=== PATIENT | female | born 1985 | race Caucasian/White ===

== ENCOUNTER → 2016-09-07 | Outpatient (CLI) | payer OTHER ==
[~2016-09-07] MED LIST: DCS100C PO; ESCI5TAB; IBP800T PO; OXYC1TAB12 PO; PREN1TAB19 PO; SERT25TA PO; [UNRECOGNIZED DRUG - OTHER]
[2016-09-07 08:00] LABS: BASOPHILS % (AUTO) 0 % (0-10); EOSINOPHILS # (AUTO) 0.1 10^3/uL (0.0-0.3); EOSINOPHILS % (AUTO) 1 % (0-10); LYMPHOCYTES # (AUTO) 3.8 X 10^3 (1.0-4.0); LYMPHOCYTES % (AUTO) 28 % (12-44); MEAN CORPUSCULAR HEMOGLOBIN 31 PG (25-34); MEAN CORPUSCULAR HGB CONC 34 G/DL (32-36); MEAN CORPUSCULAR VOLUME 91 FL (80-99); MEAN PLATELET VOLUME 9.6 FL (7.4-10.4); MONOCYTES # (AUTO) 0.6 X 10^3 (0.0-1.0); MONOCYTES % (AUTO) 4 % (0-12); NEUTROPHILS % (AUTO) 67 % (42-75); PLATELET COUNT 405 10^3/uL (130-400); RED BLOOD COUNT 4.18 10^6/uL (4.35-5.85); RED CELL DISTRIBUTION WIDTH 12.2 % (10.0-14.5); WHITE BLOOD COUNT 13.5 10^3/uL (4.3-11.0)
[2016-09-07 08:19] LABS: ALANINE AMINOTRANSFERASE 13 U/L (0-55); ALBUMIN 3.7 GM/DL (3.2-4.5); ANION GAP 8 MMOL/L (5-14); ASPARTATE AMINO TRANSFERASE 10 U/L (5-34); BILIRUBIN,TOTAL 0.2 MG/DL (0.1-1.0); BLOOD UREA NITROGEN 13 MG/DL (7-18); BUN/CREATININE RATIO 17; CALCIUM 8.7 MG/DL (8.5-10.1); CARBON DIOXIDE 22 MMOL/L (21-32); CHLORIDE 108 MMOL/L (98-107); CHOLESTEROL 154 MG/DL (< 200); CREATININE SERUM 0.76 MG/DL (0.60-1.30); DIRECT LDL 84 MG/DL (1-129); GFR ESTIMATED > 60; GLUCOSE 88 MG/DL (70-105); POTASSIUM 4.2 MMOL/L (3.6-5.0); SODIUM 138 MMOL/L (135-145); TOTAL PROTEIN 6.7 GM/DL (6.4-8.2); TRIGLYCERIDES 92 MG/DL (<150); VLDL CHOLESTEROL 18 MG/DL (5-40); hs C REACTIVE PROTEIN 2.69 MG/DL (0.00-0.50)
[2016-09-07 08:26] LABS: BAND NEUTROPHILS 1 %; BASOPHILS % (MANUAL) 1 %; EOSINOPHILS % (MANUAL) 2 %; LYMPHOCYTES % (MANUAL) 33 %; NEUTROPHILS % (MANUAL) 61 %
[2016-09-07 08:29] LABS: ERYTHROCYTE SEDIMENTATION RATE 17 MM/HR (0-20)
[2016-09-07 08:41] LABS: THYROID STIMULATING HORMONE 1.38 UIU/ML (0.35-4.94)
== END ==
LOC: LAB 07:41
PROVIDERS: ATTEND Nurse Practitioner Family
DX: R76.8 Other specified abnormal immunological findings in serum (principal); M13.0 Polyarthritis, unspecified; R42 Dizziness and giddiness; F41.1 Generalized anxiety disorder; R00.0 Tachycardia, unspecified
CPT/HCPCS: 36415; 80053; 80061; 84439; 84443; 85007; 85027; 85652; 86038; 86141

== ENCOUNTER 2016-09-19 10:59 | Outpatient (RCR) | payer OTHER | END 2016-11-26 | disposition home or self-care (01) | LOC: CARD 10:59 | PROVIDERS: ATTEND Family Medicine | DX: R00.0 Tachycardia, unspecified (principal) | CPT/HCPCS: 93225; 93226 ==

== ENCOUNTER → 2016-10-07 | Outpatient (CLI) | payer OTHER ==
[2016-10-07 14:10] LABS: BASOPHILS % (AUTO) 0 % (0-10); EOSINOPHILS # (AUTO) 0.1 10^3/uL (0.0-0.3); EOSINOPHILS % (AUTO) 1 % (0-10); LYMPHOCYTES # (AUTO) 1.5 X 10^3 (1.0-4.0); LYMPHOCYTES % (AUTO) 17 % (12-44); MEAN CORPUSCULAR HEMOGLOBIN 31 PG (25-34); MEAN CORPUSCULAR HGB CONC 34 G/DL (32-36); MEAN CORPUSCULAR VOLUME 91 FL (80-99); MEAN PLATELET VOLUME 9.5 FL (7.4-10.4); MONOCYTES # (AUTO) 0.5 X 10^3 (0.0-1.0); MONOCYTES % (AUTO) 5 % (0-12); NEUTROPHILS # (AUTO) 6.8 X 10^3 (1.8-7.8); NEUTROPHILS % (AUTO) 77 % (42-75); PLATELET COUNT 333 10^3/uL (130-400); RED BLOOD COUNT 4.29 10^6/uL (4.35-5.85); RED CELL DISTRIBUTION WIDTH 12.2 % (10.0-14.5); WHITE BLOOD COUNT 8.8 10^3/uL (4.3-11.0)
[2016-10-07 14:43] LABS: EOSINOPHILS % (MANUAL) 1 %; LYMPHOCYTES % (MANUAL) 18 %; NEUTROPHILS % (MANUAL) 78 %
--- NOTE | 2016-10-07 15:51 | Diagnostic Imaging Report ---
CLINICAL INDICATION: Patient is seeing spots, flashes of light, headache everyday, tachycardia. Patient has headaches on top of head. EXAM: Axial CT scan of the brain performed without IV contrast. COMPARISON: None. FINDINGS: There is no evidence of acute cerebral infarct, intracranial hemorrhage, or gross mass effect. There is normal sanchez-white matter distinction. The brain parenchymal volume appears appropriate for patient's age. There is no significant midline shift or herniation. There is no evidence of hydrocephalus. The basal cisterns are unremarkable. The skull, extracranial soft tissue, and orbits are unremarkable. The paranasal sinuses are unremarkable. IMPRESSION: Unremarkable CT scan of the brain. Dictated by: Dictated on workstation # [id number]
== END ==
LOC: RAD 13:27
PROVIDERS: ATTEND Nurse Practitioner Family
DX: R42 Dizziness and giddiness (principal); H53.8 Other visual disturbances; R51 Headache
CPT/HCPCS: 36415; 70450; 85007; 85027; 86141

== ENCOUNTER → 2016-10-26 | Outpatient (CLI) | payer OTHER ==
[~2016-10-26] MED LIST changes: +AZIT250T12; +BENZ200C51 PO; +ESCI10TA PO; +ETHY1TAB3 PO; +OXYC-202 PO; +OXYC-465; +PRD20T
== END ==
LOC: CARD 11:37
PROVIDERS: ATTEND Nurse Practitioner Family
DX: R07.9 Chest pain, unspecified (principal)
CPT/HCPCS: 93306

== ENCOUNTER 2016-12-20 05:34 | Outpatient (CLI) | payer OTHER ==
[~2016-12-20] VITALS: Ht 160 cm; Wt 77.1 kg
[~2016-12-20 05:34] MED LIST changes: -AZIT250T12; -BENZ200C51 PO; -ESCI10TA PO; -ETHY1TAB3 PO; -OXYC-202 PO; -OXYC-465; -PRD20T
[2016-12-20] MEDS ORDERED: ETHY1TAB3 PO (10:18)
[2016-12-20] MEDS ORDERED: ESCI10TA PO (10:18)
== END 2016-12-20 10:20 ==
LOC: PREOP 05:34
PROVIDERS: ATTEND Obstetrics & Gynecology
DX: Z01.818 Encounter for other preprocedural examination (principal); N93.8 Other specified abnormal uterine and vaginal bleeding; N92.0 Excessive and frequent menstruation with regular cycle

== ENCOUNTER 2016-12-23 06:08 | Day surgery (SDC) | payer OTHER ==
[~2016-12-23] VITALS: Ht 160 cm; Wt 77.1 kg
[~2016-12-23 06:08] MED LIST changes: +ESCI10TA PO; +ETHY1TAB3 PO
[2016-12-23] MEDS ORDERED: SEVOFLURANE (ULTANE) 15 ML INHAL SOLN ONE ×3 (06:38→07:31)
[2016-12-23] MEDS ORDERED: proPOfol 200 MG/20 ML (DIPRIVAN) VIAL IV ONE (06:38)
[2016-12-23] MEDS ORDERED: LIDOCAINE PF 2% 5 ML (XYLOCAINE) VIAL ONE (06:38)
[2016-12-23] MEDS ORDERED: MIDAZOLAM 2 MG/2 ML (VERSED) VIAL ONE (06:39)
[2016-12-23] MEDS ORDERED: fentaNYL INJECTION 100 MCG/2 ML AMP ONE (06:39)
[2016-12-23 06:41] LABS: MEAN PLATELET VOLUME 9.5 FL (7.4-10.4); RED BLOOD COUNT 3.75 10^6/uL (4.35-5.85); WHITE BLOOD COUNT 13.4 10^3/uL (4.3-11.0)
[2016-12-23] MEDS ORDERED: LACTATED RINGERS 1,000 ML IV PRN (06:41)
[2016-12-23] MEDS ORDERED: DEXAMETHASONE 10 MG/ML (DECADRON) 1 ML VIAL ONE (06:42)
[2016-12-23] MEDS ORDERED: ONDANSETRON 4 MG/2 ML (SDV) Z0FRAN ONE (06:42)
[2016-12-23] MEDS ORDERED: NS (IVPB) 50 ML ONE (06:53)
[2016-12-23] MEDS ORDERED: ceFAZolin 1,000 MG (ANCEF) VIAL ONE (06:53)
[2016-12-23] MEDS ORDERED: D5 LR IV SOLUTION 1,000 ML IV SCH (06:58)
[2016-12-23] MEDS ORDERED: OXYC-202 PO (06:59)
[2016-12-23] MEDS ORDERED: ONDANSETRON 4 MG/2 ML (SDV) Z0FRAN IVP PRN ×2 (07:00→08:30)
[2016-12-23] MEDS ORDERED: MEPERIDINE (DEMEROL) INJ 100 MG/ML IM ONE (07:00)
[2016-12-23] MEDS ORDERED: oxyCODONE/APAP 10/325MG (PERCOCET 10) TABLET PO PRN (07:00)
[2016-12-23] MEDS ORDERED: PROMETHAZINE INJ 25 MG/ML (PHENERGAN) AMP IM ONE (07:00)
[2016-12-23] MEDS ORDERED: KETOROLAC 30 MG/ML VIAL IVP ONE ×2 (07:00→08:30)
[2016-12-23] MEDS ORDERED: ESTROGENS CONJ IV 25 MG/5 ML (PREMARIN) VIAL IVP ONE (07:00)
--- NOTE | 2016-12-23 07:01 | Discharge Instructions ---
Discharge Instructions Discharge Medications New, Converted or Re-Newed RX: RX on Chart Patient Instructions Patient Instructions: as directed Return to The Hospital For: as directed Activity & Diet Discharge Diet: No Restrictions Activity as Tolerated: No Orders-Post D/C & Referrals Follow Up Appt: Call to make follow up appt. for patient in 2 weeks. Activity: Rest for 24 hours, than as tolerated. Diet: As tolerated-Clear Liquids only if nauseated. May shower or tub bathe as desired. No driving for 24 hours, no alcoholic beverages for 24 hours, and nothing per vagina (no tampons, douching, or intercourse) for 2 weeks. Patient to return to the clinic as soon as possible for: Temperature greater than 101F, Severe Pain, Foul discharge from incision or vagina, Excessive Bleeding (more than a period). ANGELI HUFF MD Dec 23, 2016 7:01 am
--- NOTE | 2016-12-23 07:02 | Progress Note-Pre Operative ---
Pre-Operative Progress Note H&P Reviewed The H&P was reviewed, patient examined and no changes noted. Date Seen by Provider: Dec 23, 2016 Time Seen by Provider: 07:15 Date H&P Reviewed: Dec 23, 2016 Time H&P Reviewed: 07:15 Pre-Operative Diagnosis: discharge uterine bleeding/menorrhagia/endometrial polyp ANGELI HUFF MD Dec 23, 2016 7:02 am
--- NOTE | 2016-12-23 07:03 | Progress Note-Post Operative ---
Post-Operative Progess Note Surgeon (s)/Hvac Refrigeration Technician (s) Surgeon ANGELI HUFF MD Hvac Refrigeration Technician: none Pre-Operative Diagnosis discharge uterine bleeding/menorrhagia/endometrial polyp Post-Operative Diagnosis same with pathology pending Procedure & Operative Findings Date of Procedure 12/23/16 Procedure Performed/Findings hysteroscopy with directed biopsy and D&C Anesthesia Type GETA Estimated Blood Loss Estimated blood loss (mL): minimal Specimens/Packing Specimens Removed directed endometrial mass biopsy, endometrial curettings Packing: none required ANGELI HUFF MD Dec 23, 2016 07:03
[2016-12-23] MEDS ORDERED: ceFAZolin 1 GM/NS 50 ML IVPB IV ONE ×2 (07:30)
[2016-12-23 07:44] VITALS: BP 120/75
[2016-12-23] MEDS ORDERED: WATER (STERILE) FOR INJECTION 10 ML ONE (08:04)
[2016-12-23] MEDS ORDERED: morphine INJ 10 MG/ML 1ML (SYR OR VIAL) ONE (08:10)
[2016-12-23] MEDS ORDERED: morphine INJ 10 MG/ML 1ML (SYR OR VIAL) IVP PRN (08:30)
[2016-12-23 09:00] VITALS: BP 122/87
--- OUTSIDE RECORDS SUMMARY | 2016-12-23 09:10 | XMS REPORT | Clinical Summary ---
Author Author [facility] Organization [facility] Address Unknown Phone Unavailable Care Team Providers Care Resident Care Associate Name Role Phone PCP Unavailable Source Comments Some departments are not documenting in the electronic medical record. If you do not see the information that you expected, contact Release of Information in the Health Information Management department at [phone] for further assistance in locating additional records.[facility] Allergies Active Allergy Reactions Severity Noted Date Comments Fluticasone SWOLLEN TONGUE, ITCHING, High 03/04/2011 Throat Swelling SEE COMMENTS Ciprofloxacin HIVES, RASH 03/04/2011 Sulfa (Sulfonamide HIVES, RASH 03/04/2011 Antibiotics) Current Medications Prescription Sig. Disp. Refills Start End Date Status Date acetaminophen (TYLENOL) Take 500 mg by mouth Active 500 mg tablet every 6 hours as needed. sertraline (ZOLOFT) 100 Take 1.5 Tabs by mouth 135 Tab 3 11/07/19 Active mg tablet daily. [address](+) Take 1 Cap by mouth twice 180 Cap 3 11/07/19 Active (PREVACID) 30 mg capsule daily. 14 ALPRAZolam (XANAX) 0.25 Take 1 Tab by mouth daily 15 Tab 1 11/07/19 Active mg tablet as needed. [address](+) TAKE ONE CAPSULE BY MOUTH 180 Cap 1 01/15/20 Active (PRILOSEC) 20 mg capsule TWICE DAILY 14 VIT Take by mouth daily. Active W-CA,FE,FA(<1 MG) ( VITAMIN PO) Active Problems Problem Noted Date First 02/05/2014 Overview: Formatting of this note may be different from the original. 28 y.o. with BANDAR 10/03/14 by 6 week sono Patient's last menstrual period was 12/02/2013. labs rh positive, antibody negative, RI, RPR NR, HIV neg, Hep B neg, CBC wnl, frank/chl neg Pap smear Negative 2012 NT sono AFP/QS Anatomy sono 28wk labs GTT GBS Flu vaccine Tdap vaccine Rhogam vaccine indicated MMR vaccine indicated Well woman exam 11/12/2012 Overview: Formatting of this note may be different from the original. Health Maintenance Topic Date Due Influenza Vaccine 10/28/2012 Physical (Comprehensive) Exam 11/12/2013 Cervical Cancer Screening 05/09/2014 Tetanus Vaccine 08/27/2022 Pertussis Vaccine Completed Dexa: DUE at age 65 Mammogram: DUE at age 40 every 2 years, then annually at age 50. Last Annual eye exam: PRN PAP: last PAP 04/2012 Lack of transformation zone; sees [facility] Colonoscopy/ annual FOBT: ordered ;prior Colonoscopy, unknown results; due at age 49 Hearing difficulty?: no Immunization History Administered Date(s) Administered FLU VACCINE >3YO 11/22/2010 Tdap Vaccine 09/11/2012 Tetanus Vaccine 03/24/2007 TDAP: Done:08/2012 Tetanus: [id number]; Done:08/2012 ; due 08/2022 Varicella: 2 doses if not immune or no prior infection Zoster 1 dose after age 60 y. due: age 60 MMR: 1-2 doses prior to age 50 y. Normal Childhood vaccine series FLU/ H1N1: Annually: done ; due: 2012, she will do at hospital Pneumococcal: 1 dose after 65y. Due: age 64 aspirin for women age 55 to 79 years: DUE at age 55 >20 y. Lipid panel if increased risk of CHD: no increased CHD risk No results found for this basename: chol, trig, hdl, ldl, vldl, nonhdlchol, cholhdlc HIV screen if at risk: Address at next visit If HTN, screen for DM: No HTN If HLD, refer to nutrition for low cholesterol diet: no HLD Screen for obesity: Body mass index is 26.71 kg/(m^2). Overweight (BMI ?25 Discussed patient's BMI with her. The BMI is above average; counseled regarding weight loss. IBS (irritable bowel syndrome) 11/12/2012 Overview: Nausea and RUQ/ LUQ abd pain, improved w/ PPI Diarrhea w/ meals alternating w/ constipation Increase fiber in her diet - tried- but during a period of diarrhea, consider miralax Handouts provided Food elimination trials: Has tried briefly eliminating coffee- warm fluids for breakfast. Gluten free when she is able to do. GERD (gastroesophageal reflux disease) 05/28/2012 Overview: uncontroled on omeprazole 20mg bid. Refer for EGD Change to prevacid 30mg bid Add pepcid 20mg prn Hx of ulcers and h.pylori NINO positive 05/28/2012 Connective tissue disease, undifferentiated (HCC) 05/28/2012 Anxiety 02/28/2012 Overview: Increased anxiety; father has CA and and she is getting . Denies SI/ HI. sertraline increase to 150mg daily Psychology - she is attending counseling Xanax .25mg prn Encouraged exercise. Hematuria 02/07/2012 Overview: [facility]; Renal: Dr. Anguiano Interstitial cystitis 07/28/2011 Overview: [facility]. Chronic sinusitis 03/31/2011 Overview: CT head from 03/16/11: near opacification of the bilateral maxillary sinuses and left sphenoid sinus with air fluid level, and mucosal thickening within a majority of the ethmoid air cells. Given augmentin and flonase by ENT in 02/[address] max/fac ordered. L ast Assessment & Plan: Likely causing VELASCO in this patient. Await response to meds and possible intervention with ENT. Allergic rhinitis 03/11/2011 PUD (peptic ulcer disease) Overview: Diagnosed in 2003 with EGD and colonoscopy. No meds needed for intermittent symptoms. H pylori positive at the time. 10/2013 EGD: Summary: Normal esophagus. Normal stomach. Biopsies were taken for h.pylori. Normal duodenum. Biopsies were taken for celiac disease. Recommendations: Raise the head of the bed 4 to 6 inches. Avoid smoking. Avoid excess coffee, tea or other caffeinated beverages. Avoid garments that fit tightly through the abdomen. Avoid eating before bed. Continue current medication Follow-up on the results of the biopsy specimens. Follow-up appointment with referring physician 10/2013: Final Diagnosis: A. Small intestinal mucosa, "small bowel biopsy", biopsy: No diagnostic abnormalities. No evidence of celiac sprue. B. Gastric mucosa, "gastric biopsy", biopsy: Focal mild chronic inflammation. No H. pylori-like organisms are identified on H and E sections. Last Assessment & Plan: Stable, no treatment at this time. Generalized headaches Seasonal allergic reaction Resolved Problems Problem Noted Date Resolved Date Polyarthralgias 05/28/2012 11/12/2012 Abdominal pain 11/21/2011 11/12/2012 Drug allergy 03/11/2011 03/24/2011 Immunizations Name Dates Previously Given Next Due FLU VACCINE >3YO 11/22/2010 Flu Vaccine Trivalent=>3 12/24/2012 Yo (Preservative Free) Tdap Vaccine 09/11/2012 Tetanus Vaccine 03/24/2007 Family History Medical History Relation Name Comments Asthma Brother Migraines Brother Hypertension Brother Cancer Father hepatocellular CA Arthritis-osteo Maternal Grandmother Cancer Maternal breast Grandmother Other Maternal basal cell ca Grandmother Thyroid Disease Maternal Grave's Disease Grandmother Coronary Artery Disease Mother CABG 2010 Heart Disease Mother Migraines Mother Cancer-Breast Other High Cholesterol Paternal Aunt Cancer Paternal bladder Grandfather Other Paternal bladder ca Grandfather Atrial Fibrillation Paternal Grandmother Cancer Paternal skin cancer unknown Grandmother Hypertension Paternal Grandmother Stroke Paternal Grandmother Relation Name Status Comments Brother Alive Brother Brother Alive Father Alive Maternal Grandmother Mother Alive Other Paternal Aunt Paternal Grandfather Paternal Grandmother Social History Tobacco Use Types Packs/Day Years Used Date Former Smoker Quit: 06/27/2008 Smokeless Tobacco: Never Used Tobacco Cessation: Counseling Given: No Alcohol Use Drinks/Week oz/Week Comments No rarely Sex Assigned at Date Recorded Not on file Last Filed Vital Signs Vital Sign Reading Time Taken Blood Pressure 122/78 02/05/2014 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 Pulse 75 11/25/2013 3:25 PM CDT Temperature 36.9 C (98.4 F) 11/25/2013 3:25 PM CDT Respiratory Rate 16 11/06/2013 11:00 AM CDT Oxygen Saturation 100% 11/25/2013 3:25 PM CDT Inhaled Oxygen - - Concentration Weight 76.2 kg (168 lb) 02/05/2014 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
--- NOTE | 2016-12-23 09:26 | OPERATIVE REPORT ---
DATE OF SERVICE: 12/23/2016 PREOPERATIVE DIAGNOSES: Dysfunctional uterine bleeding, menorrhagia and likely endometrial polyp. POSTOPERATIVE DIAGNOSES: Dysfunctional uterine bleeding, menorrhagia and likely endometrial polyp with pathology pending. OPERATIVE PROCEDURE: Hysteroscopy with directed biopsy and D and C. OPERATIVE DESCRIPTION: With the patient in the supine position under satisfactory general anesthesia, she was repositioned in [facility] and then prepped and draped in the usual fashion for vaginal surgery. Weighted speculum placed in the posterior fornix of the vagina, the cervix exposed and grasped anteriorly with single tooth tenaculum. The uterus was sounded to 9 cm with the uterine sound. The cervix was then serially dilated with Beck dilators to accommodate a hysteroscope, which was introduced using LR as a distending medium, the endometrial cavity was examined. There was diffuse carpet of polypoid-appearing tissue essentially covering the entire posterior uterine wall and the majority of the anterior uterine cavity. Both tubal ostia were readily apparent and look normal. Mold Stripper biopsies were taken of this polypoid-appearing tissue and then the hysteroscope was removed and the endometrial cavity sharply curettaged in all 4 quadrants to good uterine cry, removing an additional aliquot of tissue. That tissue was sent to pathology separately as endometrial curettings. The hysteroscope was reintroduced. The endometrial cavity examined. There was no significant remaining tissue and nothing that appeared abnormal at this point. There was no significant bleeding. The hysteroscope was removed. There was no bleeding from the cervical os. The tenaculum was removed from the anterior cervical lip. There was no bleeding from that site. With no significant bleeding, the procedure was complete. Sponge and needle counts were correct. Estimated blood loss was minimal. The patient tolerated the procedure well and was uneventfully awakened from general anesthesia and transferred to the recovery room in stable condition with plans for discharge home PAR. Job ID: [id number] DocumentID: [id number] Dictated Date: 12/23/2016 07:56:40 Veneer Drier Tailer Date: 12/23/2016 09:25:43 Dictated By: ANGELI HUFF MD
[2016-12-23 09:30] VITALS: BP 125/82
[2016-12-23 10:00] VITALS: BP 134/90
== END 2016-12-23 10:07 | disposition home or self-care (01) ==
LOC: SDC 06:08
PROVIDERS: ATTEND Obstetrics & Gynecology
DX: N93.8 Other specified abnormal uterine and vaginal bleeding (principal); N92.0 Excessive and frequent menstruation with regular cycle; F32.9 Major depressive disorder, single episode, unspecified; Z79.899 Other long term (current) drug therapy
CPT/HCPCS: 36415; 84703; 85027; 87081

== ENCOUNTER → 2018-01-25 | Outpatient (CLI) | payer OTHER ==
[~2018-01-25] MED LIST changes: +AZIT250T12; +BENZ200C51 PO; +OXYC-465; +PRD20T
[2018-01-25 09:19] LABS: BASOPHILS % (AUTO) 0 % (0-10); EOSINOPHILS # (AUTO) 0.1 10^3/uL (0.0-0.3); EOSINOPHILS % (AUTO) 1 % (0-10); HEMATOCRIT 37 % (35-52); HEMOGLOBIN 12.3 G/DL (11.5-16.0); LYMPHOCYTES # (AUTO) 2.2 X 10^3 (1.0-4.0); LYMPHOCYTES % (AUTO) 24 % (12-44); MEAN CORPUSCULAR HEMOGLOBIN 31 PG (25-34); MEAN CORPUSCULAR HGB CONC 33 G/DL (32-36); MEAN CORPUSCULAR VOLUME 93 FL (80-99); MEAN PLATELET VOLUME 9.4 FL (7.4-10.4); MONOCYTES # (AUTO) 0.4 X 10^3 (0.0-1.0); MONOCYTES % (AUTO) 4 % (0-12); NEUTROPHILS # (AUTO) 6.5 X 10^3 (1.8-7.8); NEUTROPHILS % (AUTO) 71 % (42-75); PLATELET COUNT 321 10^3/uL (130-400); RED BLOOD COUNT 3.98 10^6/uL (4.35-5.85); RED CELL DISTRIBUTION WIDTH 12.4 % (10.0-14.5); WHITE BLOOD COUNT 9.2 10^3/uL (4.3-11.0)
[2018-01-25 09:40] LABS: ALANINE AMINOTRANSFERASE 12 U/L (0-55); ALBUMIN 3.8 GM/DL (3.2-4.5); ALKALINE PHOSPHATASE 72 U/L (40-136); BILIRUBIN,TOTAL 0.3 MG/DL (0.1-1.0); BUN/CREATININE RATIO 13; CALCIUM 8.8 MG/DL (8.5-10.1); CARBON DIOXIDE 22 MMOL/L (21-32); CHLORIDE 106 MMOL/L (98-107); CREATININE SERUM 0.76 MG/DL (0.60-1.30); GFR ESTIMATED > 60; GLUCOSE 92 MG/DL (70-105); POTASSIUM 3.8 MMOL/L (3.6-5.0); SODIUM 137 MMOL/L (135-145); TOTAL PROTEIN 6.4 GM/DL (6.4-8.2)
== END ==
LOC: LAB 09:03
PROVIDERS: ATTEND Nurse Practitioner Family
DX: R53.83 Other fatigue (principal); R63.4 Abnormal weight loss; R00.0 Tachycardia, unspecified; R61 Generalized hyperhidrosis; Z83.49 Family history of other endocrine, nutritional and metabolic diseases
CPT/HCPCS: 36415; 80053; 84443; 85025; 86376; 86800

== ENCOUNTER → 2018-02-07 | Outpatient (CLI) | payer OTHER | LOC: LAB 09:23 | PROVIDERS: ATTEND Nurse Practitioner Family | DX: R61 Generalized hyperhidrosis (principal); R63.4 Abnormal weight loss | CPT/HCPCS: 36415; 84439 ==

== ENCOUNTER → 2018-04-25 | Outpatient (CLI) | payer OTHER ==
--- NOTE | 2018-04-25 18:18 | Diagnostic Imaging Report ---
EXAMINATION: Digital Mammogram bilateral diagnostic with 3D tomosynthesis and computer-aided detection (CAD) system. INDICATION: Right breast lump. COMPARISON: There are no prior studies available for comparison. FINDINGS: At this time, the patient complains of a lump in the 12 o'clock position of the right breast. A marker was placed in the area of concern. There is no primary or secondary sign of malignancy noted, however. Even so, I would recommend that ultrasound be performed for further study. There are scattered fibroglandular densities in both breasts, which could obscure a lesion. There is no primary or secondary sign of malignancy noted. IMPRESSION: There is no evidence of malignancy. In particular, there is no sign of an abnormality in the area of the patient's palpable mass in the 12 o'clock position of the right breast. Ultrasound would be recommended for further study. ACR BI-RADS Category 0: Incomplete. (Needs additional imaging evaluation). Result letter will be mailed to the patient. Note: At least 10% of breast cancer is not imaged by mammography. Dictated by: Dictated on workstation # [id number]
--- NOTE | 2018-04-25 18:27 | Diagnostic Imaging Report ---
EXAMINATION: Ultrasound right breast. INDICATION: Right breast mass. FINDINGS: The diagnostic mammogram performed earlier today failed to show any sign of malignancy. On this study, there is no discrete solid or cystic mass identified. If clinical concern regarding a palpable abnormality persists, however, then biopsy should still be considered. IMPRESSION: There is no evidence for malignancy or for a cyst to account for the patient's palpable abnormality. Clinical follow-up is recommended. ACR BI-RADS Category 1: Negative. Dictated by: Dictated on workstation # [id number]
== END ==
LOC: RAD 07:59
PROVIDERS: ATTEND Obstetrics & Gynecology
DX: N63.10 Unspecified lump in the right breast, unspecified quadrant (principal)
CPT/HCPCS: 77066

== ENCOUNTER → 2019-08-23 | Outpatient (CLI) | payer OTHER ==
[2019-08-23 08:50] LABS: ABSOLUTE RETIC # 67 10e9/L (24-90); BASOPHILS % (AUTO) 0 % (0-10); EOSINOPHILS # (AUTO) 0.1 10^3/uL (0.0-0.3); EOSINOPHILS % (AUTO) 1 % (0-10); HEMATOCRIT 39 % (35-52); HEMOGLOBIN 13.1 G/DL (11.5-16.0); LYMPHOCYTES # (AUTO) 2.2 X 10^3 (1.0-4.0); LYMPHOCYTES % (AUTO) 20 % (12-44); MEAN CORPUSCULAR HEMOGLOBIN 32 PG (25-34); MEAN CORPUSCULAR HGB CONC 34 G/DL (32-36); MEAN CORPUSCULAR VOLUME 95 FL (80-99); MEAN PLATELET VOLUME 9.4 FL (7.4-10.4); MONOCYTES # (AUTO) 0.6 X 10^3 (0.0-1.0); MONOCYTES % (AUTO) 5 % (0-12); NEUTROPHILS # (AUTO) 8.4 X 10^3 (1.8-7.8); NEUTROPHILS % (AUTO) 74 % (42-75); PLATELET COUNT 378 10^3/uL (130-400); RED CELL DISTRIBUTION WIDTH 12.6 % (10.0-14.5); RETICULOCYTE % 1.65 % (0.50-2.40); WHITE BLOOD COUNT 11.4 10^3/uL (4.3-11.0)
[2019-08-23 09:28] LABS: BAND NEUTROPHILS 1 %; BASOPHILS % (MANUAL) 0 %; EOSINOPHILS % (MANUAL) 0 %; LYMPHOCYTES % (MANUAL) 20 %; MONOCYTES % (MANUAL) 3 %; NEUTROPHILS % (MANUAL) 76 %; RBC MORPH NORMAL
== END ==
LOC: LAB 08:37
PROVIDERS: ATTEND Nurse Practitioner Family
DX: D72.828 Other elevated white blood cell count (principal)
CPT/HCPCS: 36415; 85007; 85027; 85045

== ENCOUNTER → 2020-03-06 | Outpatient (CLI) | payer OTHER ==
[~2020-03-06] MED LIST changes: -OXYC-465; +OXYC-556
[2020-03-06 10:24] LABS: ABSOLUTE RETIC # 82 10e9/uL (24-90); BASOPHILS # (AUTO) 0.1 10^3/uL (0.0-0.1); BASOPHILS % (AUTO) 1 % (0-10); EOSINOPHILS # (AUTO) 0.2 10^3/uL (0.0-0.3); EOSINOPHILS % (AUTO) 2 % (0-10); HEMATOCRIT 37 % (35-52); HEMOGLOBIN 12.3 g/dL (11.5-16.0); LYMPHOCYTES # (AUTO) 2.4 10^3/uL (1.0-4.0); LYMPHOCYTES % (AUTO) 26 % (12-44); MEAN CORPUSCULAR HEMOGLOBIN 32 pg (25-34); MEAN CORPUSCULAR HGB CONC 33 g/dL (32-36); MEAN CORPUSCULAR VOLUME 97 fL (80-99); MEAN PLATELET VOLUME 9.2 fL (9.0-12.2); MONOCYTES # (AUTO) 0.5 10^3/uL (0.0-1.0); MONOCYTES % (AUTO) 6 % (0-12); NEUTROPHILS # (AUTO) 5.9 10^3/uL (1.8-7.8); NEUTROPHILS % (AUTO) 64 % (42-75); PLATELET COUNT 391 10^3/uL (130-400); RETICULOCYTE % 2.14 % (0.50-2.40); WHITE BLOOD COUNT 9.2 10^3/uL (4.3-11.0)
[2020-03-06 11:12] LABS: BAND NEUTROPHILS 0 %; LYMPHOCYTES % (MANUAL) 33 %; NEUTROPHILS % (MANUAL) 60 %
[2020-03-06 11:13] LABS: BASOPHILS % (MANUAL) 1 %; EOSINOPHILS % (MANUAL) 1 %; MONOCYTES % (MANUAL) 5 %; RBC MORPH NORMAL
== END ==
LOC: LAB 09:52
PROVIDERS: ATTEND Family Medicine
DX: D72.829 Elevated white blood cell count, unspecified (principal)
CPT/HCPCS: 36415; 85007; 85027; 85045; 85055

== ENCOUNTER → 2021-04-30 | Outpatient (CLI) | payer OTHER ==
--- NOTE | 2021-04-30 13:11 | Diagnostic Imaging Report ---
INDICATION: Pain and lump to the upper outer right breast. Correlation is made with prior mammogram from 04/25/2018. 2-D and 3-D bilateral diagnostic mammography was performed with CAD. A BB markers placed at the area of palpable abnormality in the right breast. Scattered fibroglandular densities are identified in both breasts. No mass or malignant-appearing microcalcifications are seen. Axillae are unremarkable. IMPRESSION: BI-RADS Category 0 No mammographic features suspicious for malignancy are identified. Even so, directed sonographic interrogation of the area of palpable abnormality in the upper outer right breast is recommended and will be performed today. ACR BI-RADS Category 0: Incomplete. (Needs additional imaging evaluation). Result letter will be mailed to the patient. Note: At least 10% of breast cancer is not imaged by mammography. Dictated by: Dictated on workstation # [id number]
--- NOTE | 2021-04-30 14:00 | Diagnostic Imaging Report ---
INDICATION: Pain and lump in the upper outer right breast. COMPARISON: Correlation is made with the diagnostic mammogram from earlier this same day. TECHNIQUE/FINDINGS: Sonographic interrogation of the upper outer right breast at the area of pain and lump was performed. This corresponds to the 11 o'clock location. No sonographic abnormality is identified. No solid or cystic mass is detected. IMPRESSION: No sonographic abnormality is detected. ACR BI-RADS Category 1: Negative. Dictated by: Dictated on workstation # [id number]
== END ==
LOC: RAD 12:45
PROVIDERS: ATTEND Obstetrics & Gynecology
DX: N63.11 Unspecified lump in the right breast, upper outer quadrant (principal); N64.4 Mastodynia
CPT/HCPCS: 76642; 77066; G0279; 77062

== ENCOUNTER → 2021-08-27 | Outpatient (CLI) | payer OTHER ==
[2021-08-27 13:23] LABS: ABSOLUTE RETIC # 74 10e9/uL (24-90); BASOPHILS # (AUTO) 0.1 10^3/uL (0.0-0.1); BASOPHILS % (AUTO) 1 % (0-10); EOSINOPHILS # (AUTO) 0.2 10^3/uL (0.0-0.3); EOSINOPHILS % (AUTO) 1 % (0-10); HEMATOCRIT 37 % (35-52); HEMOGLOBIN 12.5 g/dL (11.5-16.0); LYMPHOCYTES # (AUTO) 3.2 10^3/uL (1.0-4.0); LYMPHOCYTES % (AUTO) 22 % (12-44); MEAN CORPUSCULAR HEMOGLOBIN 32 pg (25-34); MEAN CORPUSCULAR HGB CONC 34 g/dL (32-36); MEAN CORPUSCULAR VOLUME 94 fL (80-99); MONOCYTES # (AUTO) 0.6 10^3/uL (0.0-1.0); MONOCYTES % (AUTO) 4 % (0-12); NEUTROPHILS # (AUTO) 10.3 10^3/uL (1.8-7.8); NEUTROPHILS % (AUTO) 71 % (42-75); PLATELET COUNT 426 10^3/uL (130-400); RETICULOCYTE % 1.89 % (0.50-2.40); WHITE BLOOD COUNT 14.4 10^3/uL (4.3-11.0)
[2021-08-27 13:49] LABS: BAND NEUTROPHILS 2 %; BASOPHILS % (MANUAL) 0 %; EOSINOPHILS % (MANUAL) 2 %; LYMPHOCYTES % (MANUAL) 23 %; MONOCYTES % (MANUAL) 3 %; NEUTROPHILS % (MANUAL) 70 %; RBC MORPH NORMAL
== END ==
LOC: LAB 12:56
PROVIDERS: ATTEND Nurse Practitioner Family
DX: D72.820 Lymphocytosis (symptomatic) (principal)
CPT/HCPCS: 36415; 85007; 85027; 85045; 85055

== ENCOUNTER 2021-09-08 08:41 | Outpatient (RCR) | payer OTHER | END 2021-09-26 | disposition home or self-care (01) | LOC: ONC 08:41 | PROVIDERS: ATTEND Internal Medicine Hematology & Oncology | DX: D75.839 Thrombocytosis, unspecified (principal); D72.0 Genetic anomalies of leukocytes | CPT/HCPCS: 99204 ==

== ENCOUNTER 2021-11-17 08:09 | Outpatient (RCR) | payer OTHER ==
[2021-11-09 08:32] LABS: BASOPHILS # (AUTO) 0.1 10^3/uL (0.0-0.1); BASOPHILS % (AUTO) 1 % (0-10); EOSINOPHILS # (AUTO) 0.2 10^3/uL (0.0-0.3); EOSINOPHILS % (AUTO) 1 % (0-10); HEMATOCRIT 40 % (35-52); HEMOGLOBIN 13.1 g/dL (11.5-16.0); LYMPHOCYTES # (AUTO) 2.8 10^3/uL (1.0-4.0); LYMPHOCYTES % (AUTO) 24 % (12-44); MEAN CORPUSCULAR HEMOGLOBIN 31 pg (25-34); MEAN CORPUSCULAR HGB CONC 33 g/dL (32-36); MEAN CORPUSCULAR VOLUME 93 fL (80-99); MEAN PLATELET VOLUME 9.2 fL (9.0-12.2); MONOCYTES # (AUTO) 0.6 10^3/uL (0.0-1.0); MONOCYTES % (AUTO) 5 % (0-12); NEUTROPHILS % (AUTO) 69 % (42-75); PLATELET COUNT 437 10^3/uL (130-400); WHITE BLOOD COUNT 11.7 10^3/uL (4.3-11.0)
== END 2021-11-26 | disposition home or self-care (01) ==
LOC: ONC 08:09
PROVIDERS: ATTEND Internal Medicine Hematology & Oncology
DX: D75.839 Thrombocytosis, unspecified (principal); D72.0 Genetic anomalies of leukocytes
CPT/HCPCS: 36415; 82728; 83540; 83550; 85025; 99213

== ENCOUNTER 2021-12-22 08:18 | Outpatient (RCR) | payer OTHER ==
[~2021-12-22 08:18] MED LIST changes: +IRON SUCROSE 100 MG/5 ML (VENOFER) VIAL CANCER CTR IV SCH
[2021-12-22 08:45] LABS: BASOPHILS # (AUTO) 0.1 10^3/uL (0.0-0.1); BASOPHILS % (AUTO) 1 % (0-10); EOSINOPHILS # (AUTO) 0.1 10^3/uL (0.0-0.3); EOSINOPHILS % (AUTO) 1 % (0-10); HEMATOCRIT 37 % (35-52); HEMOGLOBIN 12.6 g/dL (11.5-16.0); LYMPHOCYTES # (AUTO) 1.6 10^3/uL (1.0-4.0); LYMPHOCYTES % (AUTO) 13 % (12-44); MEAN CORPUSCULAR HEMOGLOBIN 32 pg (25-34); MEAN CORPUSCULAR HGB CONC 34 g/dL (32-36); MEAN CORPUSCULAR VOLUME 95 fL (80-99); MEAN PLATELET VOLUME 9.6 fL (9.0-12.2); MONOCYTES # (AUTO) 0.6 10^3/uL (0.0-1.0); MONOCYTES % (AUTO) 5 % (0-12); NEUTROPHILS # (AUTO) 10.3 10^3/uL (1.8-7.8); NEUTROPHILS % (AUTO) 81 % (42-75); PLATELET COUNT 337 10^3/uL (130-400); WHITE BLOOD COUNT 12.8 10^3/uL (4.3-11.0)
[2021-12-22 09:12] LABS: ERYTHROCYTE SEDIMENTATION RATE 10 MM/HR (0-20)
[2021-12-22 09:22] LABS: ALBUMIN 3.6 GM/DL (3.2-4.5); BILIRUBIN,TOTAL 0.2 MG/DL (0.1-1.0); CALCIUM 8.6 MG/DL (8.5-10.1); CREATININE SERUM 0.93 MG/DL (0.60-1.30); POTASSIUM 3.8 MMOL/L (3.6-5.0); TOTAL PROTEIN 6.7 GM/DL (6.4-8.2)
== END 2021-12-27 | disposition home or self-care (01) ==
LOC: ONC 08:18
PROVIDERS: ATTEND Internal Medicine Hematology & Oncology
DX: D75.839 Thrombocytosis, unspecified (principal); D72.0 Genetic anomalies of leukocytes; E61.1 Iron deficiency
CPT/HCPCS: 36415; 80053; 82728; 83540; 83550; 85025; 85652; 86141; 96374

== ENCOUNTER 2021-12-28 08:04 | Outpatient (RCR) | payer OTHER ==
[~2021-12-28 08:04] MED LIST changes: -IRON SUCROSE 100 MG/5 ML (VENOFER) VIAL CANCER CTR IV SCH
== END 2022-01-26 | disposition home or self-care (01) ==
LOC: ONC 08:04
PROVIDERS: ATTEND Internal Medicine Hematology & Oncology
DX: D50.9 Iron deficiency anemia, unspecified (principal); R05.3 Chronic cough
CPT/HCPCS: 99213

== ENCOUNTER → 2022-06-07 | Outpatient (CLI) | payer OTHER ==
--- NOTE | 2022-06-07 20:21 | Diagnostic Imaging Report ---
INDICATION: Knee pain. COMPARISON: None available. TECHNIQUE: 3 radiographs of the right knee dated 06/07/2022 FINDINGS: No acute fracture or dislocation. No destructive osseous process. Mild medial joint space narrowing. Lateral compartment is well maintained. No joint effusion. No suspicious radiopaque foreign body. The patella is well seated within the trochlea. IMPRESSION: No acute osseous abnormality with minimal degenerative changes within the knee, particularly within the medial compartment. Dictated by: Dictated on workstation # [id number]
== END ==
LOC: ORTHO 12:56
PROVIDERS: ATTEND Orthopaedic Surgery
DX: M22.2X1 Patellofemoral disorders, right knee (principal); E61.1 Iron deficiency
CPT/HCPCS: 73562; G0463; 99203

== ENCOUNTER 2022-08-17 06:36 | Outpatient (CLI) | payer OTHER ==
[~2022-08-17] VITALS: Ht 160 cm; Wt 80.9 kg
[2022-08-17] MEDS ORDERED: NF-ESOM40C PO (09:12)
[2022-08-17] MEDS ORDERED: DULO60CA7 PO (09:12)
[2022-08-17] MEDS ORDERED: ETHY1TAB PO (09:12)
[2022-08-17] MEDS ORDERED: LISI5TAB20 PO (09:12)
[2022-08-17] MEDS ORDERED: MONT-47 PO (09:12)
== END 2022-08-17 09:22 | disposition home or self-care (01) ==
LOC: PREOP 06:36
PROVIDERS: ATTEND Internal Medicine
DX: Z01.818 Encounter for other preprocedural examination (principal)

== ENCOUNTER 2022-08-19 07:51 | Day surgery (SDC) | payer OTHER ==
--- NOTE | 2022-08-16 12:08 | HISTORY AND PHYSICAL ---
COLONOSCOPY SUMMARY HISTORY OF PRESENT ILLNESS: The patient is a 37-year-old white female referred by Dr. Morgan for diagnostic colonoscopy. She reports at least 1-month history of diarrhea, reporting 2-3 loose to liquid stools per day. She has had small volume bright red blood per rectum associated with this without reported pain on defecation. She has some urgency, but denies incontinence. Symptoms began rather abruptly, no one else was sick. There is no other travel history reported and she reports no associated antibiotic use, likely in over a year. She had one other colonoscopy in 2008 for reportedly different type of abdominal symptoms. She also had an EGD. Apparently, she was diagnosed with an Helicobacter and was treated with resolution of her symptoms. Occasionally, previous to this, she would vacillate between diarrhea and constipation, but nothing to this extreme and nothing that she had sought medical attention or medication treatment for. She denies night sweats, chills, fever or change in weight. She has had associated bilateral lower quadrant burning and cramping type pain with some alleviation after the passage of stool. PAST MEDICAL HISTORY: Cholecystectomy in 2008, she had a in 2014. FAMILY HISTORY: Mother may have history of irritable bowel syndrome. She is not aware of any family history for colon cancer or colon polyps. Father succumbed to liver cancer at the age of 57. Her mother is living with no other health problems at the age of 64. She has 2 brothers living with no health problems. 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 She has no past smoking history, occasional small volume alcohol intake. REVIEW OF SYSTEMS: CONSTITUTIONAL: As noted in the HPI. GASTROINTESTINAL: As noted in the HPI. PULMONARY: Denies cough, wheezing or shortness of breath. CARDIOVASCULAR: Denies chest discomfort, orthopnea, PND, or pedal edema. MEDICATIONS: On admission include lisinopril, low dose for hypertension 5 mg, Cymbalta for depression 60 mg daily. [ ] in the form of [ ] mcg daily, Singulair and Nexium for reflux symptoms. PHYSICAL EXAMINATION: GENERAL: Reveals a pleasant white female, appeared to be in no acute distress. VITAL SIGNS: Weight 178, blood pressure 130/80. HEENT: Unremarkable. Sclerae nonicteric. CHEST: Clear to auscultation. CARDIOVASCULAR: Reveals a regular rate and rhythm without murmur, S3, or S4. ABDOMEN: Soft, supple without mass or organomegaly. Mild left and right lower quadrant discomfort to palpation without rebound or guarding. No bruits noted. EXTREMITIES: Revealed no cyanosis, clubbing or edema. ASSESSMENT: For further evaluation of recent onset diarrhea with small volume rectal bleeding. The patient is being set up for diagnostic colonoscopy. Prep instructions were given and questions were answered. We will need to obtain biopsies even if examination is unremarkable in appearance to rule out microscopic colitis. Considering Nexium use and past cholecystectomy, we will need to consider small bowel bacterial overgrowth or contributing factor of bile salt related to diarrhea. Examination does not reveal overt evidence for colitis. Job ID: [id number] DocumentID: [id number] Dictated Date: 08/16/2022 11:02:33 Chief Operator Synthesis Date: 08/16/2022 11:40:00 Dictated By: TOPHER ALAS MD
[~2022-08-19] VITALS: Ht 160 cm; Wt 80.9 kg
[~2022-08-19 07:51] MED LIST changes: +DULO60CA7 PO; +ETHY1TAB PO; +LISI5TAB20 PO; +MONT-47 PO; +NF-ESOM40C PO
[2022-08-19] MEDS ORDERED: LACTATED RINGERS 1,000 ML IV STA (08:00)
[2022-08-19 08:15] VITALS: BP 128/91
[2022-08-19] MEDS ORDERED: PROPOFOL INJECTION 50 ML IV ONE (08:27)
--- NOTE | 2022-08-19 08:29 | Pre-Op Note & Conscious Sedat ---
Pre-Operative Progress Note Date H&P Reviewed: Aug 19, 2022 Time H&P Reviewed: 08:28 History & Physical: H&P Reviewed, Patient Examed, No changes noted Pre-Op Diagnosis: Diarrhea rectal bleeding Moderate Sedation PreProcedure ASA Score 2 Airway Lungs Heart ASA score ASA 1: a normal healthy patient ASA 2: a patient with a mild systemic disease (mid diabetes, controlled hypertension, obesity ASA 3: a patient with a severe systemic disease that limits activity (angina, COPD, prior Myocardial infarction) ASA 4: a patient with an incapacitating disease that is a constant threat to life (CHF, renal failure) ASA 5: a moribund patient not expected to survive 24 hrs. (ruptured aneurysm) ASA 6: a declared brain- patient whose organs are being harvested. For emergent operations, add the letter E after the classification Mallampati Classification Grade 2 Sedation Plan Analgesia, Amnesia, Plan communicated to team members, Discussed options with patient/fam, Discussed risks with patient/fam The patient is an appropriate candidate to undergo the planned procedure, sedation, and anesthesia. The patient immediately re-assessed prior to indication. TOPHER ALAS MD Aug 19, 2022 08:29
[2022-08-19 08:50] VITALS: BP 104/62
--- NOTE | 2022-08-19 08:54 | Progress Note-Post Operative ---
Post-Procedure Note Physician (s)/Spotter Driver (s) Physician TOPHER ALAS MD Pre-Procedure Diagnosis Pre-Procedure Diagnosis: Diarrhea rectal bleeding Post-Procedure Diagnosis Post-operative diagnosis: Prior to undergoing colonoscopy digital rectal evaluation was performed. Anal suture tone was normal and the perianal reflexes intact. No abnormalities noted on digital inspection of the anal canal or distal rectal vault. The colonoscope was then inserted into the rectum and under direct visualization advanced to the cecum. The cecum was identified by identification of the ileocecal valve and cecal strap. The distal 10 cm of terminal ileum were inspected as well. A careful inspection was made as the colonoscope withdrawn. Quality prep was good. Findings there are no evidence of internal or external hemorrhoids in the rectum sigmoid colon descending colon splenic flexure transverse colon hepatic flexure ascending colon and cecum and distal 10 cm of terminal ileum were unremarkable to gross inspection. Biopsies from the ascending colon and rectum were obtained and submitted for evaluation for microscopic colitis. A/P 1. Normal colonoscopy to the cecum including distal 10 cm of terminal ileum biopsies from the rectum and ascending colon are pending for evaluation of microscopic colitis. If biopsies are unremarkable would advocate treatment for small bowel bacterial overgrowth as patient does have risk factors we will likely have her return to discuss biopsy results and treatment options. I thank you for the furl this pleasant lady sincerely, Topher Alas MD. CC: Dr. Marii CALLAHAN MD. TOPHER ALAS MD Aug 19, 2022 08:54
[2022-08-19 08:55] VITALS: BP 106/58
[2022-08-19 09:26] VITALS: BP 106/58
--- NOTE | 2022-08-19 09:56 | Anesthesia-General Post-Op ---
MAC Patient Condition Mental Status/LOC: Same as Preop Cardiovascular: Satisfactory Nausea/Vomiting: Absent Respiratory: Satisfactory Pain: Controlled Complications: Absent Post Op Complications Complications None Follow Up Care/Instructions Patient Instructions None needed. Anesthesiology Discharge Order Discharge Order Patient is doing well, no complaints, stable vital signs, no apparent adverse anesthesia problems. No complications reported per nursing. ARIC ANDRE CRNA Aug 19, 2022 09:56
== END 2022-08-19 09:34 | disposition home or self-care (01) ==
LOC: ENDO 07:51
PROVIDERS: ATTEND Internal Medicine
DX: K62.5 Hemorrhage of anus and rectum (principal); R19.7 Diarrhea, unspecified
CPT/HCPCS: 84703